=== PATIENT | male | born 1970 | race Caucasian/White ===

== ENCOUNTER 2017-04-07 13:56 | Inpatient (IN) | payer MEDICAID, SELFPAY ==
[~2017-04-07] VITALS: Ht 172.7 cm; Wt 110.7 kg
[~2017-04-07 13:56] MED LIST: ESCI5TAB PO; GABA300C PO
[2017-04-07] MEDS ORDERED: SODIUM CHLORIDE 0.9% 1,000 ML IV ONE (15:38)
[2017-04-07 15:47] LABS: BASOPHILS # (AUTO) 0.03 K/uL (0.00-0.20); BASOPHILS % (AUTO) 0.3 % (0.0-2.0); EOSINOPHILS % (AUTO) 0.96 % (1.0-6.0); HEMATOCRIT 47.2 % (41-53); HEMOGLOBIN 16.2 g/dL (13.5-17.5); LYMPHOCYTES # (AUTO) 2.3 K/uL (1.0-4.8); LYMPHOCYTES % (AUTO) 21.9 % (22.0-44.0); MEAN CORPUSCULAR HEMOGLOBIN 29.7 pg (26.0-34.0); MEAN CORPUSCULAR HGB CONC 34.2 G/dL (31.0-37.0); MEAN CORPUSCULAR VOLUME 87 fL (80-100); MONOCYTES # (AUTO) 0.6 K/uL (0.1-1.0); MONOCYTES % (AUTO) 6.1 % (2.0-9.0); NEUTROPHILS # (AUTO) 7.3 K/uL (1.8-7.7); NEUTROPHILS % (AUTO) 70.8 % (40.0-70.0); PLATELET COUNT (AUTO) 280 K/uL (150-450); RED BLOOD CELL COUNT(AUTO) 5.45 MIL/uL (4.50-5.90); RED CELL DISTRIBUTION WIDTH 14.3 % (11.5-14.5)
[2017-04-07 16:14] LABS: ANION GAP 14 mmol/L (8-16); CALCIUM, TOTAL 8.5 mg/dL (8.8-10.5); CARBON DIOXIDE 27 mmol/L (22-29); CHLORIDE 104 mmol/L (98-107); CREATININE 0.96 mg/dL (0.60-1.30); GLOMERULAR FILTR. RATE CALC > 60 mL/min (>60); GLUCOSE,RANDOM 142 mg/dL (70-110); POTASSIUM 3.6 mmol/L (3.5-5.1); SODIUM SERUM 145 mmol/L (136-145); UREA NITROGEN, BLOOD 15 mg/dL (7-18)
[2017-04-07 16:24] LABS: ALANINE AMINOTRANSFERASE 35 U/L (12-78); ALKALINE PHOSPHATASE 108 U/L (46-116); ASPARTATE AMINOTRANSFERASE 21 U/L (15-37); BILIRUBIN,TOTAL 0.3 mg/dL (0.1-1.0); TOTAL PROTEIN, SERUM 8.1 g/dL (6.4-8.2)
[2017-04-07] MEDS ORDERED: HALOPERIDOL 5 MG TABLET PO PRN (17:00)
[2017-04-07] MEDS ORDERED: ACETAMINOPHEN 325 MG TABLET PO ONE (18:15)
[2017-04-07] MEDS: LORazepam 2 MG TABLET PO PRN ×2 (18:49→22:48)
[2017-04-07] MEDS ORDERED: ONDANSETRON HCL 4 MG/2 ML VIAL IVP ONE (19:15)
[2017-04-08] VITALS (10 sets, daily range): BP systolic 122–168; BP diastolic 63–109
[2017-04-08] MEDS ORDERED: PNEUMOCOCCAL VACCINE POLYVALENT 0.5 ML VIAL [PPSV23] IM ONE (02:30)
[2017-04-08] MEDS: ZOLPIDEM TARTRATE 10 MG TABLET PO PRN (02:33)
[2017-04-08] MEDS ORDERED: GuaiFENesin/D-METHORPHAN [SUGAR-FREE] 200-20MG/10 ML SYRUP UDCUP PO PRN (08:00)
[2017-04-08] MEDS ORDERED: LOPERAMIDE HCL 2 MG CAPSULE PO PRN (08:00)
[2017-04-08] MEDS ORDERED: HydrOXYzine PAMOATE 50 MG CAPSULE PO PRN (08:00)
[2017-04-08] MEDS ORDERED: CYANOCOBALAMIN 1,000 MCG/ML VIAL IM ONE (08:00)
[2017-04-08] MEDS: FOLIC ACID 1 MG TABLET PO SCH (09:07)
[2017-04-08] MEDS: MULTIVITAMINS WITH MINERALS, THERAPEUTIC TABLET PO SCH (09:07)
[2017-04-08] MEDS: THIAMINE HCL 100 MG TABLET PO SCH ×2 (09:07→16:30)
[2017-04-08] MEDS: DIAZEPAM 10 MG TABLET PO SCH (09:11)
[2017-04-08 09:13] LABS: AMPHET/METH SCREEN,URINE NEGATIVE (NEGATIVE); BARBITURATE SCREEN, URINE NEGATIVE (NEGATIVE); BENZODIAZEPINES SCREEN,URINE NEGATIVE (NEGATIVE); CANNABINOID SCREEN,URINE NEGATIVE (NEGATIVE); COCAINE SCREEN,URINE NEGATIVE (NEGATIVE); METHADONE SCREEN, URINE NEGATIVE (NEGATIVE); OPIATE SCREEN,URINE NEGATIVE (NEGATIVE); PHENCYCLIDINE SCREEN,URINE NEGATIVE (NEGATIVE)
[2017-04-08] MEDS: DIAZEPAM 10 MG TABLET PO PRN ×2 (09:15→23:38)
[2017-04-08 10:02] LABS: APPEARANCE,URINE CLEAR (CLEAR); BILIRUBIN,URINE NEGATIVE (NEGATIVE); GLUCOSE, URINE (UA) NEGATIVE (NEGATIVE); KETONES,URINE 15 mg/dL (NEGATIVE); LEUKOCYTE ESTERASE ,URINE NEGATIVE (NEGATIVE); NITRATE,URINE NEGATIVE (NEGATIVE); OCCULT BLOOD,URINE NEGATIVE (NEGATIVE); PROTEIN,URINE NEGATIVE (NEGATIVE); UROBILINOGEN,URINE 0.2 mg/dL (<=1.0)
[2017-04-08] MEDS: GABAPENTIN 300 MG CAPSULE PO SCH ×2 (11:10→16:30)
[2017-04-08] MEDS: ESCITALOPRAM OXALATE 10 MG TABLET PO SCH (11:10)
[2017-04-08] MEDS: LORazepam 2 MG TABLET PO PRN (13:20)
[2017-04-08] MEDS ORDERED: CloNIDine HCL 0.1 MG TABLET PO PRN (17:45)
[2017-04-09] VITALS: BP 145/78
[2017-04-09 04:00] VITALS: BP 137/74
[2017-04-09] MEDS ORDERED: DIAZEPAM 10 MG TABLET PO PRN (07:00)
[2017-04-09] MEDS: GABAPENTIN 300 MG CAPSULE PO SCH ×2 (08:53→16:20)
[2017-04-09] MEDS: THIAMINE HCL 100 MG TABLET PO SCH ×2 (08:53→16:20)
[2017-04-09] MEDS: DIAZEPAM 10 MG TABLET PO SCH ×4 (08:54→20:16)
[2017-04-09] MEDS: MULTIVITAMINS WITH MINERALS, THERAPEUTIC TABLET PO SCH (08:54)
[2017-04-09] MEDS: FOLIC ACID 1 MG TABLET PO SCH (08:54)
[2017-04-09] MEDS: ESCITALOPRAM OXALATE 10 MG TABLET PO SCH (08:55)
[2017-04-09 10:17] VITALS: BP 180/113
[2017-04-09 10:24] VITALS: BP 180/113
[2017-04-09 12:00] VITALS: BP 144/98
[2017-04-09 16:30] VITALS: BP 148/98
[2017-04-10 05:36] VITALS: BP 144/90
[2017-04-10] MEDS: MULTIVITAMINS WITH MINERALS, THERAPEUTIC TABLET PO SCH (09:07)
[2017-04-10] MEDS: GABAPENTIN 300 MG CAPSULE PO SCH ×2 (09:07→17:24)
[2017-04-10] MEDS: THIAMINE HCL 100 MG TABLET PO SCH ×2 (09:07→17:24)
[2017-04-10] MEDS: FOLIC ACID 1 MG TABLET PO SCH (09:07)
[2017-04-10] MEDS: ESCITALOPRAM OXALATE 10 MG TABLET PO SCH (09:08)
[2017-04-10] MEDS: DIAZEPAM 10 MG TABLET PO SCH ×4 (09:09→22:00)
[2017-04-10 09:14] VITALS: BP 130/89
[2017-04-10 09:52] VITALS: BP 130/89
[2017-04-10 16:03] VITALS: BP 155/103
[2017-04-11 06:00] VITALS: BP 142/108
[2017-04-11] MEDS ORDERED: DIAZEPAM 5 MG TABLET PO PRN (07:00)
[2017-04-11] MEDS ORDERED: IBUPROFEN 600 MG TABLET PO PRN (07:15)
[2017-04-11] MEDS: DIAZEPAM 5 MG TABLET PO SCH ×4 (09:00→21:00)
[2017-04-11 10:00] VITALS: BP 120/80
[2017-04-11 10:01] VITALS: BP 120/80
[2017-04-11] MEDS: FOLIC ACID 1 MG TABLET PO SCH (10:04)
[2017-04-11] MEDS: MULTIVITAMINS WITH MINERALS, THERAPEUTIC TABLET PO SCH (10:04)
[2017-04-11] MEDS: THIAMINE HCL 100 MG TABLET PO SCH ×2 (10:05→16:25)
[2017-04-11] MEDS: ESCITALOPRAM OXALATE 10 MG TABLET PO SCH (10:05)
[2017-04-11] MEDS: GABAPENTIN 300 MG CAPSULE PO SCH ×2 (10:09→16:25)
[2017-04-11 18:49] VITALS: BP 142/97
[2017-04-11 18:50] VITALS: BP 142/97
[2017-04-12 02:20] VITALS: BP 144/95
[2017-04-12 05:11] VITALS: BP 144/95
[2017-04-12] MEDS ORDERED: DIAZEPAM 5 MG TABLET PO PRN (07:00)
[2017-04-12 08:34] VITALS: BP 142/97
[2017-04-12 08:43] VITALS: BP 142/97
[2017-04-12] MEDS: MULTIVITAMINS WITH MINERALS, THERAPEUTIC TABLET PO SCH (09:12)
[2017-04-12] MEDS: ESCITALOPRAM OXALATE 10 MG TABLET PO SCH (09:12)
[2017-04-12] MEDS: THIAMINE HCL 100 MG TABLET PO SCH ×2 (09:12→16:24)
[2017-04-12] MEDS: GABAPENTIN 300 MG CAPSULE PO SCH ×2 (09:12→16:24)
[2017-04-12] MEDS: FOLIC ACID 1 MG TABLET PO SCH (09:13)
[2017-04-12 16:00] VITALS: BP 138/92
[2017-04-12] MEDS: ZOLPIDEM TARTRATE 10 MG TABLET PO PRN (21:03)
[2017-04-12] MEDS: ACETAMINOPHEN 325 MG TABLET PO PRN (22:25)
[2017-04-13 06:54] VITALS: BP 135/85
[2017-04-13 08:15] VITALS: BP 141/95
[2017-04-13] MEDS: GABAPENTIN 300 MG CAPSULE PO SCH ×2 (09:02→16:31)
[2017-04-13] MEDS: THIAMINE HCL 100 MG TABLET PO SCH ×2 (09:02→16:31)
[2017-04-13] MEDS: MULTIVITAMINS WITH MINERALS, THERAPEUTIC TABLET PO SCH (09:02)
[2017-04-13] MEDS: ESCITALOPRAM OXALATE 10 MG TABLET PO SCH (09:03)
[2017-04-13] MEDS: FOLIC ACID 1 MG TABLET PO SCH (09:03)
[2017-04-13 16:50] VITALS: BP 133/84
[2017-04-14 08:40] VITALS: BP 130/83
[2017-04-14] MEDS: FOLIC ACID 1 MG TABLET PO SCH (09:09)
[2017-04-14] MEDS: GABAPENTIN 300 MG CAPSULE PO SCH ×2 (09:09→16:25)
[2017-04-14] MEDS: MULTIVITAMINS WITH MINERALS, THERAPEUTIC TABLET PO SCH (09:09)
[2017-04-14] MEDS: ESCITALOPRAM OXALATE 10 MG TABLET PO SCH (09:10)
[2017-04-14] MEDS: THIAMINE HCL 100 MG TABLET PO SCH ×2 (09:10→16:25)
[2017-04-14] MEDS: LORazepam 2 MG TABLET PO PRN ×2 (16:25→20:55)
[2017-04-14 19:00] VITALS: BP 138/90
[2017-04-15 08:00] VITALS: BP 131/87
[2017-04-15] MEDS: FOLIC ACID 1 MG TABLET PO SCH (09:25)
[2017-04-15] MEDS: ESCITALOPRAM OXALATE 10 MG TABLET PO SCH (09:25)
[2017-04-15] MEDS: GABAPENTIN 300 MG CAPSULE PO SCH ×2 (09:25→17:10)
[2017-04-15] MEDS: THIAMINE HCL 100 MG TABLET PO SCH ×2 (09:25→17:10)
[2017-04-15] MEDS: MULTIVITAMINS WITH MINERALS, THERAPEUTIC TABLET PO SCH (09:26)
[2017-04-15] MEDS: LORazepam 2 MG TABLET PO PRN (19:13)
[2017-04-15 19:50] VITALS: BP 125/85
[2017-04-16 01:03] VITALS: BP 131/85
[2017-04-16] MEDS: ZOLPIDEM TARTRATE 10 MG TABLET PO PRN (01:06)
[2017-04-16] MEDS: ACETAMINOPHEN 325 MG TABLET PO PRN (01:06)
[2017-04-16] MEDS: MULTIVITAMINS WITH MINERALS, THERAPEUTIC TABLET PO SCH (09:18)
[2017-04-16] MEDS: ESCITALOPRAM OXALATE 10 MG TABLET PO SCH (09:18)
[2017-04-16] MEDS: FOLIC ACID 1 MG TABLET PO SCH (09:18)
[2017-04-16 09:19] VITALS: BP 153/86
[2017-04-16] MEDS: THIAMINE HCL 100 MG TABLET PO SCH (09:19)
[2017-04-16] MEDS: GABAPENTIN 300 MG CAPSULE PO SCH (09:19)
== END 2017-04-16 11:25 | disposition home or self-care (01) | DRG 751 ==
LOC: EMS 13:57 → 3EI 04-08 00:11
PROVIDERS: ADMIT Psychiatry & Neurology Child & Adolescent Psychiatry; ATTEND Psychiatry & Neurology Child & Adolescent Psychiatry
DX: F33.2 Major depressive disorder, recurrent severe without psychotic features (principal); R45.851 Suicidal ideations; I10 Essential (primary) hypertension; F10.239 Alcohol dependence with withdrawal, unspecified; Z79.899 Other long term (current) drug therapy; Z28.21 Immunization not carried out because of patient refusal; Z81.8 Family history of other mental and behavioral disorders
CPT/HCPCS: 80307; 99285; G0480; J2405; J3420; J7030